=== PATIENT | female | born 1960 | race Caucasian/White ===

== ENCOUNTER → 2022-06-11 | Outpatient (CLI) | payer BC ==
--- NOTE | 2022-06-11 16:10 | Diagnostic Imaging Report ---
INDICATION: LEG PAIN COMPARISON: None TECHNIQUE: Limited abdominal sonogram was performed to evaluate the abdominal aorta. FINDINGS: The abdominal aorta is normal in course and caliber. There is no evidence of aneurysm nor focal significant stenosis. The axial dimensions of the abdominal aorta, at the level of the renal arteries is approximately 2.1 x 2.2 cm. In the mid segment these are 1.5 x 1.6 cm and distally these are 1.3 x 1.7 cm. The aortic bifurcation is unremarkable. The proximal portions of the right and left common iliac arteries are unremarkable. There is no ascites. IMPRESSION: 1. Unremarkable abdominal aorta. No evidence of stenosis or aneurysm. Dictated by: Dictated on workstation # [id number]
--- NOTE | 2022-06-11 19:24 | Diagnostic Imaging Report ---
INDICATION: History of hyperlipidemia. I77.1 COMPARISON: None FINDINGS: Ankle brachial indices are interrogated bilaterally. Ankle brachial index on the right measures 1.03 and on the left measures 1.12. This is within normal limits. IMPRESSION: 1. Normal ankle brachial indices. Dictated by: Dictated on workstation # [id number]
--- NOTE | 2022-06-11 20:29 | Diagnostic Imaging Report ---
PROCEDURE: US Bilateral lower extremity arterial. TECHNIQUE: Multiple real-time grayscale images are obtained through both lower extremity arterial systems with color Doppler imaging and color Doppler spectral analysis. INDICATION: History of arterial stenosis. COMPARISON: None FINDINGS: Normal triphasic waveform is identified from the common femoral through the popliteal artery bilaterally. By NASCET criteria, there is no focal significant stenosis. Grayscale and color flow images are unremarkable. Triphasic waveform is also preserved within the right calf and dorsalis pedis arteries. There is, however, biphasic flow seen within the left posterior tibial and dorsalis pedis arteries. IMPRESSION: 1. No focal significant stenosis of the bilateral lower extremity arterial systems. Dictated by: Dictated on workstation # [id number]
== END ==
LOC: RAD 12:35
PROVIDERS: ATTEND Family Medicine
DX: I77.1 Stricture of artery (principal)
CPT/HCPCS: 76775; 93923; 93925